=== PATIENT | male | born 1950 | race Caucasian/White ===

== ENCOUNTER → 2017-05-06 | Outpatient (CLI) | payer BC, MEDICARE ==
[~2017-05-06] MED LIST: AMLODIPINE-VAL1 EACH PO
== END | disposition home or self-care (01) ==
LOC: CDC 12:30
DX: R94.31 Abnormal electrocardiogram [ECG] [EKG] (principal); M65.311 Trigger thumb, right thumb; M79.641 Pain in right hand
CPT/HCPCS: 93000